=== PATIENT | male | born 1930 | race Two or more races ===

== ENCOUNTER 2018-03-28 19:11 | Emergency (ER) | payer OTHER ==
[~2018-03-28] VITALS: Ht 172.7 cm; Wt 54.4 kg
--- NOTE | 2018-03-28 19:18 | NUR ---
PT A/OX3 LETHARGIC/ WEAK. C/C LOW BP. VSS. NAD. NEG SOB. AWAITING MD MONTILLA.
[2018-03-28] MEDS ORDERED: IV NS 0.9% 1,000 ML BAG IV ONE (19:30)
[2018-03-28 19:35] LABS: BASOPHILS # (AUTO) 0.5 /CMM (0.0-0.2); BASOPHILS % (AUTO) 3.5 % (0.0-2.0); EOSINOPHILS % (AUTO) 1.2 % (0.0-6.0); HEMATOCRIT 33 % (39-51); HEMOGLOBIN 10.5 g/dL (13.5-17.5); LYMPHOCYTES # (AUTO) 1.8 /CMM (0.8-4.8); LYMPHOCYTES % (AUTO) 12.6 % (20.0-44.0); MEAN CORPUSCULAR HEMOGLOBIN 22 PG (26.0-33.0); MEAN CORPUSCULAR HGB CONC 32 g/dl (31.0-36.0); MEAN CORPUSCULAR VOLUME 70 fL (80-96); MONOCYTES # (AUTO) 0.9 /CMM (0.1-1.30); MONOCYTES % (AUTO) 6.2 % (2.0-12.0); NEUTROPHILS # (AUTO) 10.6 /CMM (1.8-8.9); NEUTROPHILS % (AUTO) 76.5 % (43.0-81.0); PLATELET COUNT (AUTO) 691 /CMM (150-450); RDW COEFFICIENT OF VARIATION 17.4 (11.5-15.0)
[2018-03-28 19:48] LABS: CALCIUM, SERUM 8.7 mg/dL (8.5-10.1); CARBON DIOXIDE 24 mmol/L (21-32); CHLORIDE 100 mmol/L (98-107); CREATININE 1.8 mg/dL (0.6-1.3); GLUCOSE 111 mg/dL (74-106); SODIUM SERUM 135 mmol/L (136-145); UREA NITROGEN, BLOOD 47 mg/dL (7-18)
[2018-03-28] MEDS ORDERED: LIDOCAINE 2% JEL UROJET 10 ML MM ONE ×2 (19:54→20:00)
[2018-03-28 19:55] LABS: ALANINE AMINOTRANSFERASE 13 U/L (12-78); ALKALINE PHOSPHATASE 98 U/L (46-116); ASPARTATE AMINOTRANSFERASE 31 U/L (15-37); BILIRUBIN,DIRECT 0.2 mg/dL (0.0-0.2); BILIRUBIN,TOTAL 0.5 mg/dL (0.2-1.0); TOTAL PROTEIN, SERUM 7.8 g/dL (6.4-8.2)
[2018-03-28 19:57] LABS: TROPONIN I 0.045 ng/mL (0.00-0.056)
--- NOTE | 2018-03-28 20:10 | NUR ---
CALLED [facility] PRESENTED THE CASE AND REQUESTED THE PATIENTS ADVANCE DIRECTIVE. THEY WILL BE FAXING IT OVER.
--- NOTE | 2018-03-28 20:11 | NUR ---
CALLED [facility], EXPECTING A CALL BACK FROM [facility] [place]
--- NOTE | 2018-03-28 20:13 | NUR ---
Straight in/out cath and urojet completed, as ordered by MD anand.
[2018-03-28 20:33] LABS: APPEARANCE,URINE Cloudy (CLEAR); BILIRUBIN,URINE SMALL (NEGATIVE); BLOOD, URINE Moderate Ery/uL (NEGATIVE); COLOR,URINE Yellow (YELLOW); KETONES,URINE Trace (NEGATIVE); LEUKOCYTE ESTERASE ,URINE Small (NEGATIVE); NITRITE, URINE Negative (NEGATIVE); PROTEIN,URINE 100 mg/dl (NEGATIVE); UGLUCOSE Negative (NEGATIVE); UROBILINOGEN,URINE 0.2 EU/dL (0.2)
[2018-03-28 20:55] LABS: BACTERIA,URINE 2+ /HPF (None Seen); SQUAMOUS EPITHELIAL CELL,UR Few /HPF (None Seen)
[2018-03-28] MEDS ORDERED: PIPERACILLIN /TAZOBACTAM 3.375 G in IV D5W 50 ML IV ONE (21:00)
[2018-03-28] MEDS ORDERED: PIPERACILLIN /TAZOBACTAM 3.375 G VIAL IV ONE (21:21)
[2018-03-28 21:25] LABS: EOSINOPHILS % (MANUAL) 2 % (0-4); LYMPHOCYTES % (MANUAL) 10 % (16-48); MONOCYTES % (MANUAL) 9 % (0-11.0); NEUTROPHILS % (MANUAL) 79 (42-76)
--- NOTE | 2018-03-28 21:27 | NUR ---
LAB AT BEDSIDE FOR LACTIC ACID REFLUX BLOOD DRAW.
--- NOTE | 2018-03-28 21:56 | NUR ---
PT RESTING COMFORTABLY. NAD. VSS. STABLE CONDITION
[2018-03-28 23:01] VITALS: BP 97/62
--- NOTE | 2018-03-28 23:29 | NUR ---
[facility] CALLED WITH TRANSFER INFO PATIENT WILL BE TRANSFERED TO [facility] EMERGENCY DEPARTMENT ACCEPTED BY DR PEGUERO NUMBER TO GIVE REPORT ALS ETA [phone]
--- NOTE | 2018-03-29 00:07 | NUR ---
REPORT GIVEN TO ANCA KO AT [facility].
--- NOTE | 2018-03-29 01:32 | NUR ---
PT ENDORSED TO [facility]. NAD. STABLE CONDITION. VSS.
== END 2018-03-29 01:34 | disposition short-term general hospital (02) ==
LOC: ER 19:13
DX: R53.1 Weakness (principal); R79.1 Abnormal coagulation profile
CPT/HCPCS: 36415; 51701; 71045; 80048; 80076; 81001; 83605 ×2; 84484; 85025; 85730; 87040 ×2; 87086; 87186; 93005; 96361; 96365; 99291; A4606; J2543 ×2; J3490; J7030; J7060; 81000-TC; Z7610